=== PATIENT | male | born 1970 | race Hispanic/Latino ===

== ENCOUNTER 2021-10-25 08:39 | Day surgery (SDC) | payer BC ==
[2021-10-20 15:51] LABS: Protime INR 1.02
[2021-10-25] MEDS ORDERED: NA CHLORIDE 0.9% 1,000 ML ONE (09:01)
[2021-10-25] MEDS ORDERED: CEFAZOLIN/SWI 2gm 2 GM/20 ML SYR ONE (09:01)
[2021-10-25] MEDS ORDERED: BUPIVACAINE 0.25% PF 10 ML VIAL ONE (09:23)
[2021-10-25] MEDS ORDERED: LIDOCAINE 1% MPF 30 ML VIAL ONE (09:23)
[2021-10-25] MEDS ORDERED: BACITRACIN OINTMENT 14 GM TUBE TOP ONE (09:23)
[2021-10-25] MEDS ORDERED: MIDAZOLAM HCL 2 MG/2 ML INJ ONE (11:32)
[2021-10-25] MEDS ORDERED: propofoL 200 MG/20 ML VIAL IV ONE (11:32)
[2021-10-25] MEDS ORDERED: FENTANYL CITR 100 MCG/2 ML ONE (11:32)
[2021-10-25] MEDS ORDERED: LIDOCAINE 2% MPF 5 ML VIAL ONE (11:33)
[2021-10-25] MEDS ORDERED: dexAMETHasone 10 MG/ML VIAL ONE (11:33)
[2021-10-25] MEDS ORDERED: KETOROLAC 30 MG/ML INJ ONE (12:16)
[2021-10-25] MEDS ORDERED: ONDANSETRON 4 MG/2 ML VIAL ONE (12:17)
[2021-10-25] MEDS ORDERED: NS 0.9% VIAL 10 ML ONE (12:31)
[2021-10-25] MEDS ORDERED: EPHEDRINE SULF 50 MG/ML VIAL ONE (12:31)
--- NOTE | 2021-10-25 13:51 | OP ---
Surgeon: ТАТЬЯНА GONZALEZ Preoperative Diagnoses: Phimosis with recurrent balanitis. Postoperative Diagnoses: Phimosis with recurrent balanitis. Principal Procedure: Sleeve circumcision and Penile Block. Indication For Procedure: Mr. Griffin presented to the [facility] with a couple of episodes of recurrent balanitis that he had treated at home or with prescriptions provided by his primary care physician. While each time it had resolved, he was concerned about it recurring and wished elective circumcision. Description Of Procedure: The patient was consented in the preoperative holding area before being transferred to the operative suite where general anesthesia was induced. He was given Ancef antimicrobial prophylaxis, and pneumo boots were provided for DVT prophylaxis. He was placed supine on the operating table, padded and secured appropriately. His genitalia were prepped using Betadine and draped in a standard fashion. The case was begun using a mixture of 4% Marcaine plain and 1% lidocaine plain 1:1. 30 mL was injected in the infrapubic region and in the region of the neurovascular bundles bilaterally to perform a penile block. I then identified a line in the shaft skin at the level of the zuñiga of the glans and made a circumferential marking. A similar marking was made within the preputial margin after the foreskin was retracted. The intervening tissue was excised using a 15 blade, and then removed by incising it dorsally and removing it from its attaching dartos layers using electrocautery. Once the skin was completely removed, the subcutaneous tissues and dartos layers were fulgurated for any bleeding until hemostatic. Irrigation using normal saline was applied, and any additional bleeding vessels were pinpoint fulgurated. I then did some additional trimming of the preputial margin in order to give the patient the desired outcome with circumcision of no extra overhanging skin when erect. As a result, a nice approximately 1 cm preputial margin was left, and then, I reconstructed the shaft skin to the preputial margin using 3-0 chromic. Four quadrant sutures were placed, and inferiorly, using tenotomy scissors, a triangular region of skin was incised in order to create an even joining between the preputial margin and the shaft skin. The intervening tissue skin was closed using 3-0 chromic in a running fashion using a horizontal mattress. In the end, the cosmetic result was excellent, and the skin was washed clean of Betadine. Bacitracin was applied around the incision line and a Reece and Coban were applied as a gentle pressure dressing. The patient was then awakened from general anesthesia, transferred to a stretcher, and then transferred to the recovery room in good condition. Complications: None. Discharge Disposition: He should follow up in the Urology Clinic within the next 2 to 4 weeks for interval assessment. KIP/FARHAT Voice ID: [id number] Report ID: [id number] MTDD
[2021-10-25] MEDS ORDERED: CODEINE 30MG/APAP 300MG TAB PO PRN (14:48)
[2021-10-25 15:39] VITALS: BP 132/71; TEMP 97.6; O2SAT 100
== END 2021-10-25 15:38 | disposition home or self-care (01) ==
LOC: OR 08:39
PROVIDERS: ATTEND Urology
PROC: 0VTTXZZ Resection of Prepuce, External Approach (ICD-10-PCS; principal; 2021-10-25 09:45)
DX: N47.1 Phimosis (principal); N47.7 Other inflammatory diseases of prepuce; N48.1 Balanitis; Z20.822 Contact with and (suspected) exposure to COVID-19
CPT/HCPCS: 93005; 36415; 85610; 82947 ×2; 88304; 54150; U0002; J2704; J2250; J3010; J1100; J0690; J7030; J2405